=== PATIENT | female | born 1980 | race Caucasian/White ===

== ENCOUNTER 2017-06-14 08:53 | Emergency (ER) | payer BC ==
--- NOTE | 2017-06-14 09:03 | ER ---
Nurse's Notes [facility] Name: Kourtney Goss Age: 37 yrs Sex: Female : 1980 Arrival Date: 06/14/2017 Time: 08:54 Bed 6 Private MD: Guicho Downs Diagnosis: Acute contact otitis externa;Acute serous otitis media, bilateral Presentation: 06/14 09:01 Presenting complaint: Patient states: Left ear pain with drainage for about 2-3 days, sg reports sore throat that is painful when swallowing. Transition of care: patient was not received from another setting of care. Onset of symptoms was June 12, 2017. Initial Sepsis Screen: Does the patient meet any 2 criteria? No. Patient's initial sepsis screen is negative. Does the patient have a suspected source of infection? No. Patient initial sepsis screen negative. Care prior to arrival: None. 09:01 Method Of Arrival: Ambulatory sg 09:01 Acuity: ANA MARIA 5 sg Historical: - Allergies: 09:06 No Known Allergies; sg - Home Meds: 09:06 blood pressure med [Active]; sg - PMHx: 09:06 Hypertension; sg - PSHx: 09:06 None; sg - Immunization history:: Adult Immunizations up to date. - Social history:: Smoking status: . Vital Signs: 09:03 BP 123 / 85; Pulse 90 MON; Resp 18 S; Temp 97.9; Pulse Ox 100% on R/A; Pain 10/10; sg ED Course: 08:54 Patient arrived in ED. as 08:54 Guicho Downs MD is Private Physician. as 08:55 Joanna Persaud FNP-C is [facility]. snw 08:55 Zev Malik MD is Attending Physician. snw 09:01 Jim Wade RN is Primary Nurse. sg 09:02 Guicho Downs MD is Referral Physician. snw 09:03 Triage completed. sg 09:04 Arm band placed on. sg Administered Medications: 09:19 Drug: TORadol 60 mg {Note: right ventrogluteal.} Route: IM; Site: Other; sg 09:19 Drug: Augmentin 875 mg Route: PO; sg Outcome: 09:03 Discharge ordered by . snw 09:29 Patient left the ED. sg Signatures: Jim Wade RN RN sg Joanna Persaud, TWISTING FRAME FIXER-C TWISTING FRAME FIXER-Csnw Stacy Brewer as
--- NOTE | 2017-06-14 09:03 | EDPHYS ---
Physician Documentation [facility] Name: Kourtney Goss Age: 37 yrs Sex: Female : 1980 Arrival Date: 06/14/2017 Time: 08:54 Bed 6 Private MD: Guicho Downs ED Physician Zev Malik HPI: 06/14 09:08 This 37 yrs old Female presents to ER via Ambulatory with complaints of Ear snw Pain. 09:08 The patient presents with drainage, pain, swelling. The complaints affect the left ear. snw Onset: The symptoms/episode began/occurred suddenly, 4 day(s) ago, and became persistent. Modifying factors: The symptoms are alleviated by nothing. Associated signs and symptoms: Pertinent positives: TMJ, pain, insomnia. Severity of symptoms: At their worst the symptoms were moderate severe. The patient has not experienced similar symptoms in the past. The patient has been recently seen by a physician: the patient's primary care provider, with similar presenting complaints, and apparently given a diagnosis of OE, given Ciprodex, Pt started drops yesterday. Historical: - Allergies: 09:06 No Known Allergies; sg - Home Meds: 09:06 blood pressure med [Active]; sg - PMHx: 09:06 Hypertension; sg - PSHx: 09:06 None; sg - Immunization history:: Adult Immunizations up to date. - Social history:: Smoking status: . ROS: 09:10 Constitutional: Negative for fever, chills, and weight loss, Eyes: Negative for injury, snw pain, redness, and discharge, Neck: Negative for injury, pain, and swelling, Cardiovascular: Negative for chest pain, palpitations, and edema, Respiratory: Negative for shortness of breath, cough, wheezing, and pleuritic chest pain, Abdomen/GI: Negative for abdominal pain, nausea, vomiting, diarrhea, and constipation, Back: Negative for injury and pain, : Negative for injury, bleeding, discharge, and swelling, MS/Extremity: Negative for injury and deformity, Skin: Negative for injury, rash, and discoloration, Neuro: Negative for headache, weakness, numbness, tingling, and seizure. 09:10 ENT: Positive for ear pain. Exam: 09:10 Constitutional: This is a well developed, well nourished patient who is awake, alert, snw and in no acute distress. Head/Face: Normocephalic, atraumatic. Eyes: Pupils equal round and reactive to light, extra-ocular motions intact. Lids and lashes normal. Conjunctiva and sclera are non-icteric and not injected. Cornea within normal limits. Periorbital areas with no swelling, redness, or edema. Neck: Trachea midline, no thyromegaly or masses palpated, and no cervical lymphadenopathy. Supple, full range of motion without nuchal rigidity, or vertebral point tenderness. No Meningismus. Chest/axilla: Normal chest wall appearance and motion. Nontender with no deformity. No lesions are appreciated. Cardiovascular: Regular rate and rhythm with a normal S1 and S2. No gallops, murmurs, or rubs. Normal PMI, no JVD. No pulse deficits. Respiratory: Lungs have equal breath sounds bilaterally, clear to auscultation and percussion. No rales, rhonchi or wheezes noted. No increased work of breathing, no retractions or nasal flaring. Abdomen/GI: Soft, non-tender, with normal bowel sounds. No distension or tympany. No guarding or rebound. No evidence of tenderness throughout. Back: No spinal tenderness. No costovertebral tenderness. Full range of motion. Skin: Warm, dry with normal turgor. Normal color with no rashes, no lesions, and no evidence of cellulitis. MS/ Extremity: Pulses equal, no cyanosis. Neurovascular intact. Full, normal range of motion. Neuro: Awake and alert, GCS 15, oriented to person, place, time, and situation. Cranial nerves II-XII grossly intact. Motor strength 5/5 in all extremities. Sensory grossly intact. Cerebellar exam normal. Normal gait. Psych: Awake, alert, with orientation to person, place and time. Behavior, mood, and affect are within normal limits. 09:10 ENT: External ear(s): are unremarkable, Ear canal(s): purulent discharge, that is moderate, in the left canal, tragal pressure with pain, + tug test, TM's: not visable, because of discharge, right tm full, Nose: is normal, Mouth: mild trismus, Posterior pharynx: is normal, Dental exam: normal, Voice: is normal. Vital Signs: 09:03 BP 123 / 85; Pulse 90 MON; Resp 18 S; Temp 97.9; Pulse Ox 100% on R/A; Pain 10/10; sg MDM: 08:57 Patient medically screened. snw 09:07 Data reviewed: vital signs, nurses notes. Data interpreted: Pulse oximetry: on room air snw is 100 %. Interpretation: normal. Counseling: I had a detailed discussion with the patient and/or guardian regarding: the historical points, exam findings, and any diagnostic results supporting the discharge/admit diagnosis, the presence of at least one elevated blood pressure reading (>120/80) during this emergency department visit, the need for outpatient follow up, to return to the emergency department if symptoms worsen or persist or if there are any questions or concerns that arise at home. Special discussion: I have referred the patient to see his PCP for further evaluation of high blood pressure. Based on the history and exam findings, there is no indication for further emergent testing or inpatient evaluation. I discussed with the patient/guardian the need to see the ENT specialist for further evaluation of the symptoms. I discussed with the patient/guardian the need to see the primary care provider for further evaluation of the symptoms. Administered Medications: 09:19 Drug: TORadol 60 mg {Note: right ventrogluteal.} Route: IM; Site: Other; sg 09:19 Drug: Augmentin 875 mg Route: PO; sg Disposition: 18:07 Co-signature as Attending Physician, Zev Malik MD Available for consultation at ps1 all times. . Disposition: 06/14/17 09:03 Discharged to Home. Impression: Acute contact otitis externa, Acute serous otitis media, bilateral. - Condition is Stable. - Discharge Instructions: Otitis Media, Adult, Otitis Externa. - Prescriptions for Tylenol- Codeine #3 300-30 mg Oral Tablet - take 2 tablets by ORAL route every 6 hours As needed; 15 tablet. Zyrtec 10 mg Oral Tablet - take 1 tablet by ORAL route once daily As needed; 20 tablet. Diclofenac Sodium 75 mg Oral Tablet Sustained Release - take 1 tablet by ORAL route 2 times per day; 30 tablet. - Medication Reconciliation Form, Thank You Letter, Antibiotic Education, Prescription Opioid Use form. - Work release form (06/14/17 09:30). sg - Follow up: Guicho Downs MD; When: 1 week; Reason: Recheck today's complaints, Continuance of care, Re-evaluation by your physician. Follow up: Emergency Department; When: As needed; Reason: Worsening of condition. Signatures: Jim Wade RN RN sg Therrien, Shelly, MONA-C RESIDENTIAL DRIVER-Csnw Zev Malik MD MD ps1
[2017-06-14] MEDS ORDERED: KETOROLAC 30 MG/ML INJ ONE (09:11)
[2017-06-14] MEDS ORDERED: AMOX/K CLAV 875 MG TAB ONE (09:31)
== END 2017-06-14 09:29 | disposition home or self-care (01) ==
LOC: ER 08:53
DX: H60.533 Acute contact otitis externa, bilateral (principal); H65.03 Acute serous otitis media, bilateral; I10 Essential (primary) hypertension
CPT/HCPCS: 96372; 99282

== ENCOUNTER 2017-08-21 12:51 | Emergency (ER) | payer BC ==
--- NOTE | 2017-08-21 14:11 | EDPHYS ---
Physician Documentation [facility] Name: Kourtney Goss Age: 37 yrs Sex: Female : 1980 Arrival Date: 08/21/2017 Time: 12:54 Bed 23 Private MD: Guicho Downs ED Physician Jaskaran Willard HPI: 08/21 14:30 This 37 yrs old Female presents to ER via Wheelchair with complaints of Back snw Pain. 14:30 The patient presents with pain that is acute, with no known mechanism of injury. The snw symptoms are located in the low back. Onset: The symptoms/episode began/occurred suddenly, 3 day(s) ago, and became worse today, and became persistent. The pain radiates to the right gluteus ciro. The problem was sustained from unknown cause. Severity of symptoms: At their worst the symptoms were moderate, severe. The patient has experienced similar episodes in the past. The patient has not recently seen a physician, the patient's primary care provider is Dr. Dr Downs. 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 - Social history:: Smoking status: Patient/guardian denies using tobacco. - Ebola Screening: : No symptoms or risks identified at this time. ROS: 14:28 Constitutional: Negative for fever, chills, and weight loss, Eyes: Negative for injury, snw pain, redness, and discharge, ENT: Negative for injury, pain, and discharge, Neck: Negative for injury, pain, and swelling, Cardiovascular: Negative for chest pain, palpitations, and edema, Respiratory: Negative for shortness of breath, cough, wheezing, and pleuritic chest pain, Abdomen/GI: Negative for abdominal pain, nausea, vomiting, diarrhea, and constipation, : Negative for injury, bleeding, discharge, and swelling, MS/Extremity: Negative for injury and deformity, Skin: Negative for injury, rash, and discoloration, Neuro: Negative for headache, weakness, numbness, tingling, and seizure. 14:28 Back: Positive for decreased range of motion, pain at rest, pain with movement, radiated pain, of the right low back and right buttock to calf. Exam: 14:28 Constitutional: This is a well developed, well nourished patient who is awake, alert, snw and in no acute distress. Head/Face: Normocephalic, atraumatic. Eyes: Pupils equal round and reactive to light, extra-ocular motions intact. Lids and lashes normal. Conjunctiva and sclera are non-icteric and not injected. Cornea within normal limits. Periorbital areas with no swelling, redness, or edema. ENT: Nares patent. No nasal discharge, no septal abnormalities noted. Tympanic membranes are normal and external auditory canals are clear. Oropharynx with no redness, swelling, or masses, exudates, or evidence of obstruction, uvula midline. Mucous membranes moist. Neck: Trachea midline, no thyromegaly or masses palpated, and no cervical lymphadenopathy. Supple, full range of motion without nuchal rigidity, or vertebral point tenderness. No Meningismus. Chest/axilla: Normal chest wall appearance and motion. Nontender with no deformity. No lesions are appreciated. Cardiovascular: Regular rate and rhythm with a normal S1 and S2. No gallops, murmurs, or rubs. Normal PMI, no JVD. No pulse deficits. Respiratory: Lungs have equal breath sounds bilaterally, clear to auscultation and percussion. No rales, rhonchi or wheezes noted. No increased work of breathing, no retractions or nasal flaring. Abdomen/GI: Soft, non-tender, with normal bowel sounds. No distension or tympany. No guarding or rebound. No evidence of tenderness throughout. Skin: Warm, dry with normal turgor. Normal color with no rashes, no lesions, and no evidence of cellulitis. MS/ Extremity: Pulses equal, no cyanosis. Neurovascular intact. Full, normal range of motion. Neuro: Awake and alert, GCS 15, oriented to person, place, time, and situation. Cranial nerves II-XII grossly intact. Motor strength 5/5 in all extremities. Sensory grossly intact. Cerebellar exam normal. Normal gait. Psych: Awake, alert, with orientation to person, place and time. Behavior, mood, and affect are within normal limits. 14:28 Back: pain, that is moderate, that is severe, of the lumbar area, left low back and right low back, ROM is painful, decreased, CVA tenderness, is absent, muscle spasm, is not present, Straight leg raises: right lower extremity illicits pain, at 30 degrees. Vital Signs: 13:54 BP 111 / 74; Pulse 81; Resp 16 S; Temp 98.0(TE); Pulse Ox 97% on R/A; Weight 99.79 kg iw (R); Height 5 ft. 6 in. (167.64 cm) (R); Pain 8/10; 13:54 Body Mass Index 35.51 (99.79 kg, 167.64 cm) iw MDM: 14:01 Patient medically screened. snw 14:29 Data reviewed: vital signs, nurses notes. Data interpreted: Pulse oximetry: on room air snw is 97 %. Interpretation: normal. Counseling: I had a detailed discussion with the patient and/or guardian regarding: the historical points, exam findings, and any diagnostic results supporting the discharge/admit diagnosis, the need for outpatient follow up, to return to the emergency department if symptoms worsen or persist or if there are any questions or concerns that arise at home. Special discussion: Based on the history and exam findings, there is no indication for further emergent testing or inpatient evaluation. I discussed with the patient/guardian the need to see the back specialist for further evaluation of the symptoms. I discussed with the patient/guardian the need to see the primary care provider for further evaluation of the symptoms. 08/21 13:02 Order name: Urine Culture snw 08/21 13:02 Order name: Urine Microscopic Only snw 08/21 15:04 Order name: Urine Dipstick--Ancillary (enter results); Complete Time: 15:13 bd 08/21 15:06 Order name: Urine --Ancillary (enter results); Complete Time: 15:13 bd 08/21 13:02 Order name: Urine Test (obtain specimen); Complete Time: 14:33 snw 08/21 13:02 Order name: Urine Dipstick-Ancillary (obtain specimen); Complete Time: 14:33 snw Administered Medications: 14:33 Drug: TORadol 60 mg Route: IM; Site: right gluteus; aa5 15:13 Follow up: Response: No adverse reaction tl3 14:33 Drug: Flexeril 10 mg Route: PO; aa5 15:13 Follow up: Response: No adverse reaction tl3 Disposition: 08/21/17 14:10 Discharged to Home. Impression: Low back pain, Sciatica, right side. - Condition is Stable. - Discharge Instructions: Back Pain, Adult, Musculoskeletal Pain, Sciatica, Back Exercises, [id number], Cryotherapy, Heat Therapy. - Prescriptions for Diclofenac Sodium 75 mg Oral Tablet Sustained Release - take 1 tablet by ORAL route 2 times per day; 30 tablet. orphenadrine citrate 100 mg Oral Tablet Sustained Release - take 1 tablet by ORAL route 2 times per day As needed; 20 tablet. - Work release form, Medication Reconciliation Form, Thank You Letter, Antibiotic Education, Prescription Opioid Use form. - Follow up: Guicho Downs MD; When: 2 - 3 days; Reason: Recheck today's complaints, Continuance of care, Re-evaluation by your physician. Follow up: Emergency Department; When: As needed; Reason: Worsening of condition. Addendum: 08/22/2017 16:11 Co-signature as Attending Physician, Jaskaran Willard MD I agree with the assessment and c calvert plan of care. Signatures: Dispatcher [employer] EDJaskaran Morse MD MD cha Therrien, Shelly, INFUSION RN-C INFUSION RN-Csnw Lula Davila, NICK ROMERO iw Ana Narvaez RN NICK aa5 Cordelia Cruz RN RN tl3 Corrections: (The following items were deleted from the chart) 08/21 15:14 14:10 08/21/2017 14:10 Discharged to Home. Impression: Low back pain; Sciatica, right tl3 side. Condition is Stable. Forms are Medication Reconciliation Form, Thank You Letter, Antibiotic Education, Prescription Opioid Use. Follow up: Guicho Downs; When: 2 - 3 days; Reason: Recheck today's complaints, Continuance of care, Re-evaluation by your physician. Follow up: Emergency Department; When: As needed; Reason: Worsening of condition. snw
--- NOTE | 2017-08-21 14:11 | ER ---
Nurse's Notes [facility] Name: Kourtney Goss Age: 37 yrs Sex: Female : 1980 Arrival Date: 08/21/2017 Time: 12:54 Bed 23 Private MD: Guicho Downs Diagnosis: Low back pain;Sciatica, right side Presentation: 08/21 13:52 Presenting complaint: Patient states: right lower back pain radiating down right leg iw since yesterday. Denies known injury. Denies urinary symptoms. Transition of care: patient was not received from another setting of care. Onset of symptoms was July 2017. Risk Assessment: Do you want to hurt yourself or someone else? Patient reports no desire to harm self or others. Initial Sepsis Screen: Does the patient meet any 2 criteria? No. Patient's initial sepsis screen is negative. Does the patient have a suspected source of infection? No. Patient's initial sepsis screen is negative. Care prior to arrival: None. 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 - Social history:: Smoking status: Patient/guardian denies using tobacco. - Ebola Screening: : No symptoms or risks identified at this time. Screenin:00 Abuse screen: Denies threats or abuse. Nutritional screening: No deficits noted. aa5 Tuberculosis screening: No symptoms or risk factors identified. Fall Risk None identified. Assessment: 14:00 General: Appears uncomfortable, Behavior is calm, cooperative. Pain: Complains of pain aa5 in right low back Pain radiates to right leg Pain currently is 8 out of 10 on a pain scale. Quality of pain is described as sharp, shooting, Pain began 1 day ago. Is continuous, Aggravated by increased activity, repositioning. Neuro: Level of Consciousness is awake, alert, obeys commands, Oriented to person, place, time, situation. Cardiovascular: No deficits noted. Respiratory: Airway is patent Respiratory effort is even, unlabored, Respiratory pattern is regular, symmetrical. GI: No signs and/or symptoms were reported involving the gastrointestinal system. : Denies burning with urination, inability to void, urinary frequency. EENT: No signs and/or symptoms were reported regarding the EENT system. Derm: Skin is pink, warm \T\ dry. Musculoskeletal: Range of motion: intact in all extremities. 14:33 Reassessment: Patient and/or family updated on plan of care and expected duration. Pain aa5 level reassessed. Patient is alert, oriented x 3, equal unlabored respirations, skin warm/dry/pink. Vital Signs: 13:54 BP 111 / 74; Pulse 81; Resp 16 S; Temp 98.0(TE); Pulse Ox 97% on R/A; Weight 99.79 kg iw (R); Height 5 ft. 6 in. (167.64 cm) (R); Pain 8/10; 13:54 Body Mass Index 35.51 (99.79 kg, 167.64 cm) iw ED Course: 12:54 Patient arrived in ED. mr 12:54 Guicho Downs MD is Private Physician. mr 13:01 [facility]. snw 13:01 Jaskaran Willard MD is Attending Physician. snw 13:54 Triage completed. iw 13:54 Arm band placed on. iw 13:55 Patient has correct armband on for positive identification. Bed in low position. Call aa5 light in reach. Side rails up X 1. 14:03 Ana Narvaez, NICK is Primary Nurse. aa5 14:10 Guicho Downs MD is Referral Physician. snw 14:35 No provider procedures requiring assistance completed. aa5 15:14 Patient did not have IV access during this emergency room visit. tl3 Administered Medications: 14:33 Drug: TORadol 60 mg Route: IM; Site: right gluteus; aa5 15:13 Follow up: Response: No adverse reaction tl3 14:33 Drug: Flexeril 10 mg Route: PO; aa5 15:13 Follow up: Response: No adverse reaction tl3 Outcome: 14:10 Discharge ordered by . snw 15:13 Discharged to home ambulatory. tl3 15:13 Condition: good 15:13 Discharge instructions given to patient, Prescriptions given X 2. 15:14 Patient left the ED. tl3 Addendum: 08/25/2017 07:36 Addendum: Culture Results: Positive urine culture. Patient was not prescribed i w antibiotics at discharge. Report given to JOELLEN for further evaluation and then to manganese heater for follow up with patient. Phone call Attempt #1 pt has followed up with PCP and denies any UTI symptoms. Signatures: Joanna Persaud, ROUSTABOUT PUSHER-C ROUSTABOUT PUSHER-Csnw Lore Peter mr Lula Davila, RN RN iw Ana Narvaez RN RN aa5 Cordelia Cruz RN RN tl3
[2017-08-21] MEDS ORDERED: KETOROLAC 30 MG/ML INJ ONE (14:30)
[2017-08-21] MEDS ORDERED: CYCLOBENZAPRINE 10 MG TAB ONE (14:30)
[2017-08-21 15:07] LABS: Urine Blood NEGATIVE (NEG); Urine Glucose NEGATIVE (NEG); Urine Protein NEGATIVE (NEG); Urine Specific Gravity 1.025 (1.005-1.030)
[2017-08-21 15:08] LABS: Urine Specific Gravity 1.025 (1.005-1.030)
[2017-08-21 15:31] LABS: Urine Bacteria >50 /HPF (<20); Urine Culture Reflex Order NOT NEEDED; Urine RBC <5 /HPF (NONE SEEN)
== END 2017-08-21 15:14 | disposition home or self-care (01) ==
LOC: ER 12:51
DX: M54.41 Lumbago with sciatica, right side (principal); I10 Essential (primary) hypertension; Z88.0 Allergy status to penicillin
CPT/HCPCS: 81003; 81015; 81025; 87077; 87086; 87088; 87186; 96372; 99283